=== PATIENT | female | born 1990 | race Caucasian/White ===

== ENCOUNTER 2023-01-17 14:18 | Emergency (ER) | payer OTHER, SELFPAY ==
[2023-01-17 14:23] VITALS: BP 118/61; PULSE 90; RESP 16; TEMP 37.3; O2SAT 100; BMI 21.1
--- NOTE | 2023-01-17 15:03 | DI.RAD.S_ITS ---
PROCEDURE: XR SHOULDER LT MIN 2V INDICATIONS: pain TECHNIQUE: 3 views of the shoulder were acquired. COMPARISON: None. FINDINGS: Bones: No displaced fracture or dislocation. No high-grade degenerative changes. Soft tissues: No suspicious soft tissue calcifications. IMPRESSION: No acute radiographic abnormality. If there is high concern for further derangement, consider MRI evaluation. Dictated by: Jaylen Arechiga M.D. on 01/17/2023 at 15:49 Approved by: Jaylen Arechiga M.D. on 01/17/2023 at 15:49
--- NOTE | 2023-02-02 12:38 | ED_ITS ---
HPI - Extremity Problem <Chelo Polanco PA-C - Last Filed: 02/02/23 13:01> General Chief complaint: Extremity Problem,Nontraumatic Stated complaint: sent by Daniel severe shoulder pain Time Seen by Provider: 01/17/23 17:28 Source: patient Mode of arrival: Ambulatory History of Present Illness HPI Narrative: 32-year-old female with no reported past medical history presents to the ED for left shoulder pain for a week. Patient states she received the 2nd hepatitis-B shot on 01/11/2023 in her left upper arm, following which she has suffered left shoulder pain. Patient denies weakness, numbness. Patient reports intermittent tingling. Patient states that she has pain with left arm movement, is also hearing some crunching, popping, clicking when she moves her arm. Patient localizes her pain to the top left shoulder, in the region of the acromion, states that is where she got the injection. Patient denies any trauma. Patient denies lifting any heavy objects, sleeping on the left shoulder for long period of time. Patient was sent by her PCP to the ED. Related Data Home Medications Medication Instructions Recorded Confirmed No Known Home Medications 07/20/22 07/20/22 Allergies Allergy/AdvReac Type Severity Reaction Status Date / Time morphine Allergy Verified 12/14/22 15:09 Morpfine Allergy Uncoded 12/14/22 15:09 Review of Systems <Chelo Polanco PA-C - Last Filed: 02/02/23 13:01> Review of Systems ROS Unobtainable: All systems reviewed & are unremarkable except as noted in HPI and below Constitutional Constitutional: Denies chills, Denies fatigue, Denies fever(s), Denies frequent falls, Denies lethargy and Denies weakness Eyes Eyes: Denies change in vision, Denies eye discharge, Denies irritation and Denies loss of vision ENT Ears, Nose, Mouth, and Throat: Denies change in voice, Denies dizziness, Denies neck pain, Denies sore throat and Denies throat swelling Cardiovascular Cardiovascular: Denies chest pain, Denies irregular heart rhythm, Denies lightheadedness, Denies palpitations, Denies dyspnea, Denies dyspnea on exertion and Denies orthopnea Respiratory Respiratory: Denies cough, Denies dyspnea, Denies dyspnea on exertion and Denies wheezing Gastrointestinal Gastrointestinal: Denies abdominal pain, Denies change in bowel habits, Denies diarrhea, Denies nausea and Denies vomiting Genitourinary Genitourinary: Denies hematuria, Denies flank pain, Denies urinary incontinence and Denies urinary urgency Musculoskeletal Musculoskeletal: Denies back pain, Denies muscle weakness, Denies neck pain, Denies numbness and Denies tingling Comments: Left shoulder pain Integumentary/Breasts Skin/Breast: Denies pruritus, Denies erythema, Denies rash and Denies wounds Neurologic Neurologic: Denies behavioral changes, Denies confusion, Denies dizziness, Denies frequent falls, Denies loss of vision, Denies numbness, Denies tingling and Denies weakness Psychiatric Psychiatric: Denies anxiety, Denies behavioral changes, Denies confusion, Denies depression, Denies homicidal ideation and Denies suicidal ideation Endocrine Endocrine: Denies fatigue, Denies flushing and Denies palpitations Hematologic/Lymphatic Hematologic/Lymphatic: Denies easy bruising Allergic/Immunologic Allergic/Immunologic: Denies urticaria, Denies throat swelling and Denies wheezing Patient History <Chelo Polanco PA-C - Last Filed: 02/02/23 13:01> Social History Smoking Status: Never smoker Smoking Status: Never smoker Substance Use Type: does not use Exam <Chelo Polanco PA-C - Last Filed: 02/02/23 13:01> Narrative Exam Narrative: Const General:?cooperative, healthy appearing and comfortable [facility] Head:?normal to inspection Ears:?hearing grossly normal bilaterally Nose:?external nose normal Face and sinus:?normal facial exam and sinuses nontender Mouth:?oral mucosae normal Throat:?posterior oropharynx normal Eyes General:?appearance normal, both eyes and all related structures Neck Neck:?normal visual inspection and no lymphadenopathy noted Resp Effort & Inspection:?normal respiratory effort Auscultation:?clear to auscultation bilaterally Cardio Rate:?regular rate Rhythm:?regular rhythm Musculoskeletal There is mild tenderness to palpation of top left shoulder, in the region of the acromion. There is full range of motion, although motion is limited by pain. Strength and sensation is intact. Patient is neurovascularly intact. No deformity, swelling, erythema. Neuro General:?patient alert, patient awake and patient oriented x3 Initial Vital Signs Initial Vital Signs: Vital Signs Temperature 99.2 F 01/17/23 14:23 Pulse Rate 90 04/03/23 14:23 Respiratory Rate 16 01/17/23 14:23 Blood Pressure 118/61 01/17/23 14:23 Pulse Oximetry 100 01/17/23 14:23 Oxygen Delivery Method Room Air 01/17/23 14:23 <Shauna Chaves DO - Last Filed: 02/03/23 20:11> Initial Vital Signs Initial Vital Signs: Vital Signs Temperature 99.2 F 01/17/23 14:23 Pulse Rate 90 01/17/23 14:23 Respiratory Rate 16 01/17/23 14:23 Blood Pressure 118/61 01/17/23 14:23 Pulse Oximetry 100 01/17/23 14:23 Oxygen Delivery Method Room Air 01/17/23 14:23 MDM - Extremity (Nontraumatic) <Chelo Polanco PA-C - Last Filed: 02/02/23 13:01> MDM Narrative Medical decision making narrative: 32-year-old female with no reported past medical history presents to the ED for left shoulder pain for a week. Concern for fracture/dislocation versus musculoskeletal sprain/strain versus other. Shoulder x-ray was obtained with no evidence of fractures/dislocation. On physical exam, patient is neurovascularly intact with intact strength and sensation and intact strength. There is some mild tenderness to palpation of the left shoulder, no erythema or swelling. There is good range of motion but it is limited by pain. Discussed findings with patient that she might be experiencing a musculoskeletal sprain/strain which could include soft tissue such as muscles, tendons, ligaments. Also explained to patient that she might have incurred a nerve injury due to trauma that can cause some tingling and pain. Multiple discussions were had with patient for counseling during this visit, and explain to patient that it is not always possible to pinpoint the cause of her symptoms during an ED visit, but that we have ruled out emergent causes such as fracture/dislocation or neurovascular compromise. Recommended patient follow-up with her PCP for further evaluation and possible PT evaluation or further imaging. Recommended Tylenol/ibuprofen for symptom relief along with heat packs. ED return precautions were discussed with patient and patient verbalized understanding. Discharge Plan Departure Patient Disposition: Home Clinical Impression: Acute shoulder pain Instructions: DI for Shoulder Pain Activity Restrictions/Additional Instructions: You were evaluated in the ED today for left upper arm and shoulder pain. Your x-ray did not show any evidence of fractures or dislocations. Your symptoms are likely due to a musculoskeletal sprain/strain. You may apply heat, take Tylenol and ibuprofen for the pain. Please follow-up with your PCP in 3-5 days for further evaluation and possible physical therapy referral. Return to the ED if you experience any numbness, tingling, weakness. Prescriptions: No Action No Known Home Medications Referrals: Miscellaneous,Doctor, [Primary Care Provider] - Stand Alone Forms: Patient Portal/API <Shauna Chaves DO - Last Filed: 02/03/23 20:11> Cosign ED Attending Cosgomezature Attestation: I was immediately available in the department for consultation.
== END 2023-01-17 18:18 | disposition home or self-care (01) ==
PROVIDERS: Emergency Provider Student in an Organized Health Care Education/Training Program
DX: M25.512 Pain in left shoulder (principal); R20.2 Paresthesia of skin
CPT/HCPCS: 73030; 99281; 99283

== ENCOUNTER → 2024-05-29 14:21 | Outpatient (CLI) | payer OTHER, SELFPAY ==
[2024-05-29 20:56] LABS: Add Manual Diff / Slide Review NO; Basophils Absolute Auto 100 /uL (0-100); Basophils Percent Auto 0.9 % (0-2); Eosinophils Absolute Auto 100 /uL (0-450); Eosinophils Percent Auto 2.3 % (2-4); Hematocrit 38.5 % (36-46); Hemoglobin 13.1 g/dL (12.0-16.0); Lymphocytes Absolute Auto 2100 /uL (1100-4500); Mean Corpuscular HGB Conc 34.1 % (30-36); Mean Corpuscular Volume 90.9 fL (80-100); Monocytes Absolute Auto 500 /uL (0-900); Monocytes Percent Auto 9.4 % (3-14); Neutrophils Absolute Auto 3000 /uL (1500-7000); Neutrophils Percent Auto 51.4 % (50-75); Platelet Count 277 X10^3/uL (150-400); Red Blood Cell Count 4.23 X10^6/uL (4.0-5.2); Red Cell Distribution Width 13.8 % (11.6-14.8); White Blood Cell Count 5.8 X10^3/uL (4.5-11.0)
[2024-05-29 21:03] LABS: Alanine Aminotransferase 14 IU/L (<35); Albumin 3.9 g/dL (3.5-5.0); Albumin Globulin Ratio 1.3 (1.0-2.8); Alkaline Phosphatase 36 U/L (38-126); Aspartate Aminotransferase 22 IU/L (14-36); BUN Creatinine Ratio 17.1 (6-22); Bilirubin Total 0.5 mg/dL (0.2-1.3); Blood Urea Nitrogen 12 mg/dL (7-17); Calcium 9.3 mg/dL (8.4-10.2); Carbon Dioxide 27 mmol/L (22-32); Chloride 106 mmol/L (98-107); Estimated Glomerular Filt Rate > 60 mL/min (>60); Glucose 93 mg/dL (70-100); HEMOLYSIS < 15 (0-50); Sodium 135 mmol/L (137-145); Total Protein 6.9 g/dL (6.3-8.2)
== END ==
PROVIDERS: Registered Nurse
DX: L29.9 Pruritus, unspecified (principal); R71.8 Other abnormality of red blood cells
CPT/HCPCS: 80053; 85025

== ENCOUNTER → 2024-12-17 13:43 | Outpatient (CLI) | payer OTHER, SELFPAY ==
--- NOTE | 2024-12-17 13:44 | DI.RAD.S_ITS ---
PROCEDURE: XR FOOT RT MIN 3V INDICATIONS: R foot pain - crush injury manhole cover 2 weeks ago TECHNIQUE: 3 views of the foot were acquired. COMPARISON: None. FINDINGS: No acute fracture or dislocation. The Lisfranc interval is preserved on the nonweightbearing view. The joint spaces are preserved. No significant tibiotalar joint effusion. IMPRESSION: No acute fracture or dislocation. Given the history, if there is persistent concern for fractures (especially at the midfoot), consider a CT of the foot without contrast for evaluation. Dictated by: Maurisio Marie M.D. on 12/17/2024 at 16:22 Approved by: Maurisio Marie M.D. on 12/17/2024 at 16:27
== END ==
PROVIDERS: PCP Family Medicine; Referring Provider Family Medicine; Visit Provider Family Medicine
DX: S99.921A Unspecified injury of right foot, initial encounter (principal); M79.671 Pain in right foot; X58.XXXA Exposure to other specified factors, initial encounter
CPT/HCPCS: 73630

== ENCOUNTER → 2025-01-22 10:51 | Outpatient (CLI) | payer OTHER, SELFPAY ==
[2025-01-22 18:50] LABS: Cholesterol 169 mg/dL (140-199); HDL Cholesterol 70 mg/dL (40-60); LDL Cholesterol Calculated 81 mg/dL (<100); Triglycerides 91 mg/dL (35-150)
[2025-01-22 19:41] LABS: HIV 1 & 2 Ab/Ag 4th Gen Combo NEGATIVE (NEGATIVE)
[2025-01-23 23:07] LABS: HBsAg Screen Negative (Negative); Hepatitis A Antibody IgM Negative (Negative); Hepatitis B Core Antibody IgM Negative (Negative); Hepatitis C Antibody Non Reactive (Non Reactive)
[2025-01-25 09:40] LABS: Treponema pallidum Antibodies Non Reactive (Non Reactive)
== END ==
PROVIDERS: PCP Family Medicine; Visit Provider Family Medicine
DX: Z13.6 Encounter for screening for cardiovascular disorders (principal); Z20.2 Contact with and (suspected) exposure to infections with a predominantly sexual mode of transmission
CPT/HCPCS: 80061; 80074; 86780; 87389

== ENCOUNTER → 2025-09-30 11:54 | Outpatient (CLI) | payer OTHER, SELFPAY ==
[2025-09-30 13:50] LABS: Urine Chlamydia NOT DETECTED; Urine N gonorrhoeae NOT DETECTED
== END ==
PROVIDERS: PCP Family Medicine; Referring Provider Physician Assistant; Visit Provider Physician Assistant
DX: Z11.3 Encounter for screening for infections with a predominantly sexual mode of transmission (principal)
CPT/HCPCS: 87086; 87210; 87491; 87591

== ENCOUNTER → 2025-09-30 12:00 | Outpatient (CLI) | payer OTHER, SELFPAY ==
[2025-10-01 17:04] LABS: Hepatitis B Surface Antigen NEGATIVE s/c (NEGATIVE)
[2025-10-01 17:13] LABS: HIV 1 & 2 Ab/Ag 4th Gen Combo NEGATIVE (NEGATIVE)
== END ==
PROVIDERS: PCP Family Medicine; Referring Provider Family Medicine; Visit Provider Physician Assistant
DX: Z11.3 Encounter for screening for infections with a predominantly sexual mode of transmission (principal)
CPT/HCPCS: 36415; 86592; 87086; 87210; 87340; 87389; 87491; 87522; 87591